=== PATIENT | male | born 1995 | race Two or more races ===

== ENCOUNTER → 2023-04-15 | Day surgery (SDC) | payer OTHER ==
[2023-04-13 09:54] LABS: HEMOGLOBIN 16.7 g/dL (13-16.00); MEAN CELL VOLUME 89.2 fL (80.0-100.00); MEAN CORPUSCULAR HEMOGLOBIN 31.6 pg (27.00-32.0); MEAN CORPUSCULAR HGB CONC 35.4 g/dl (32.0-36.0); PLATELET COUNT 211 K/uL (150-450); RED BLOOD COUNT 5.27 M/uL (4.00-6.00); RED CELL DISTRIBUTION WIDTH 12.6 % (11.5-14.5)
[2023-04-13 10:40] LABS: PH,URINE 6.5 (5.0-8.0); URINE APPEARANCE Clear; URINE BILIRRUBIN Negative (NEGATIVE); URINE BLOOD Negative; URINE COLOR Yellow; URINE GLUCOSE Negative (NEGATIVE); URINE LEUKOCYTE Negative; URINE NITRATE Negative; URINE PROTEIN Negative (NEGATIVE); URINE UROBILINOGEN 0.2 E.U./dl
[2023-04-13 10:42] LABS: INR 1.16; PARTIAL THROMBOPLASTIN TIME 28.3 SECONDS (22.0-34.0)
[2023-04-13 10:49] LABS: URINE EPITHELIAL CELLS 0.3 uL (0.0-38.8); URINE RBC 0.8 uL (0.0-20.8); URINE WBC 0.4 uL (0.0-23.2)
[2023-04-13 10:59] LABS: BILIRUBIN TOTAL 0.75 mg/dL (0.3-1.2); CALCIUM 10.2 mg/dL (8.5-10.1); CREATININE SERUM 0.94 mg/dL (0.70-1.30); GFR 97.78; GLOBULINA 3.6 G/DL (2.4-3.5); POTASSIUM 4.07 mEq/L (3.5-5.1); TOTAL PROTEIN 8.6 gm/dL (6.4-8.2)
== END | disposition home or self-care (01) ==
LOC: ADM 04-13 07:30 → CIR.AMB 07:30
PROVIDERS: ATTEND Surgery
DX: K43.9 Ventral hernia without obstruction or gangrene (principal); Z53.8 Procedure and treatment not carried out for other reasons

== ENCOUNTER 2023-04-20 05:13 | Day surgery (SDC) | payer OTHER ==
[2023-04-20] MEDS ORDERED: BUPIVACAINE HCL/PF 0.5% 30ML ML ONE (07:23)
[2023-04-20] MEDS ORDERED: CEFAZOLIN SODIUM 1,000 MG VIAL ONE (07:23)
[2023-04-20] MEDS ORDERED: CEFAZOLIN SODIUM 1,000 MG in 0.9 % SODIUM CHLORIDE 50 ML IV ONE (08:45)
[2023-04-20] MEDS ORDERED: BUPIVACAINE HCL/PF 0.5% 30ML ML IU ONE (08:45)
[2023-04-20] MEDS ORDERED: ONDANSETRON HCL 2 MG/ML VIAL ONE (09:49)
== END 2023-04-20 11:45 | disposition home or self-care (01) ==
LOC: CIR.AMB 05:13
PROVIDERS: ATTEND Surgery
DX: K43.6 Other and unspecified ventral hernia with obstruction, without gangrene (principal); Z20.822 Contact with and (suspected) exposure to COVID-19
CPT/HCPCS: 49594; C1781

== ENCOUNTER 2023-04-27 12:36 | Emergency (ER) | payer OTHER ==
[~2023-04-27] VITALS: Ht 170.2 cm; Wt 68.0 kg
== END 2023-04-27 17:59 | disposition home or self-care (01) ==
LOC: ER 12:36
DX: M54.2 Cervicalgia (principal)